=== PATIENT | male | born 1955 | race Caucasian/White ===

== ENCOUNTER 2018-08-03 11:06 | Emergency (ER) | payer BC, SELFPAY ==
[2018-08-03 11:12] VITALS: BP 133/88; PULSE 69; RESP 16; TEMP 37; O2SAT 97
--- NOTE | 2018-08-03 11:18 | ED.GENADUL_ITS ---
Discharge Plan Disposition Patient Disposition: HOME Condition: Good Discharge Details Chief Complaint: Urinary Clinical Impression: Dysuria, Acute urinary retention Primary Care Provider: Crow Dodson ED Provider: Ismael Ibrahim Home Meds and New Rx's Prescriptions: No Action multivitamin [Daily Multi-Vitamin] 1 EACH tablet 1 ea PO DAILY RF: 0 psyllium husk [Metamucil] 0.52 GM capsule 0.52 gm PO DAILY RF: 0 glucosam-chond dj-glojqt-jy ac 1 EACH capsule 1 ea PO DAILY RF: 0 codeine-guaifenesin 120 ML liquid 10 ml PO Q4H PRNQty: 120 RF: 1 fluticasone 16 GM spray,suspension 2 spry NS DAILY Qty: 1 RF: 3 doxazosin 2 MG tablet 2 mg PO DAILY Qty: 90 RF: 4 tadalafil [Cialis] 5 MG tablet 5 mg PO DAILY Qty: 30 RF: 12 hydrocodone-acetaminophen 1 EACH tablet 1 tab-cap PO Q4H PRN 5 Days Qty: 30 RF: 0 aspirin 81 MG tablet,chewable 81 mg PO DAILY RF: 0 Rosuvastatin Calcium 5 MG tablet 5 mg PO HS RF: 0 Discharge Instructions Instructions: Urinary Retention in Men (ED), Gonzalez Catheter Placement and Care (ED), Dysuria (ED) Referrals: [facility] Emergency Dept. [Outside] - Return if symptoms worsen Discharge Data Discharge Date/Time-TO BE ENTERED AT DEPARTURE: 08/03/18 13:59 Medical Decision Making Nurse scanned over 1L in the bladder. Gonzalez catheter placed by nurse and she reported catheter went in with ease and no obstruction. Urine is clear and light yellow. Abdomin without distention and patient much less anxious. We discussed removing versus leaving in until further instruction from urology. Dr. Reynoso is close friend and agreed to flush if needed until he is able to be seen by urology. He was advised to call urology tomorrow for further instruction. UA was clear of infection. This reported to patient. Return to ED if any other complications with catheter. He is agreeable with plan. HPI General Date/Time Provider Initiated Documentation: 08/03/18 11:16 . Limitations to Documentation: no limitations . Information obtained by: patient . History of Present Illness 62 year old M presents to the emergency department with the chief complaint of dysuria, HPI Narrative: 62 y/o male here with c/o dysuria for 24 hours. History of enlarged prostate followed by Dr. Strickland. He is quite anxious and has taken Citalopram. He c/o distended abdomen, pain, and inability to void or complete his void for 24 hours. Denies any fever, chills, or N/V/D. He tells me he is moving his bowels per usual. He has never had to have a catheter placed and this causes angst. Related Data Home Medications Medication Instructions Recorded Confirmed glucosam-chond me-jloivs-li ac 1 ea PO DAILY 06/27/17 multivitamin [Multi-Vitamin Daily] 1 ea PO DAILY 06/27/17 08/03/18 psyllium husk [Metamucil] 0.52 gm PO DAILY 06/27/17 08/03/18 codeine-guaifenesin 10 ml PO Q4H PRN #120 ml 10/19/17 08/03/18 fluticasone 2 spry NS DAILY #1 spray 10/19/17 08/03/18 doxazosin 2 mg PO DAILY #90 tab-cap 11/14/17 08/03/18 tadalafil [Cialis] 5 mg PO DAILY #30 tab-cap 11/14/17 08/03/18 hydrocodone-acetaminophen 1 tab-cap PO Q4H PRN 5 Days #30 12/02/17 08/03/18 tab-cap Rosuvastatin Calcium 5 mg PO HS 02/17/18 08/03/18 aspirin 81 mg PO DAILY tab-cap 02/17/18 08/03/18 Previous Rx's Medication Instructions Recorded fluticasone 2 spry NS DAILY #1 spray 10/19/17 doxazosin 2 mg PO DAILY #90 tab-cap 11/14/17 tadalafil [Cialis] 5 mg PO DAILY #30 tab-cap 11/14/17 Allergies Allergy/AdvReac Type Severity Reaction Status Date / Time atorvastatin AdvReac Intermediate sexual Unverified 08/03/18 11:27 dysfunction lovastatin AdvReac Intermediate sexual Unverified 08/03/18 11:27 dysfunction omeprazole AdvReac Diarrhea Unverified 08/03/18 11:27 Review of Systems Cardiovascular Reports system reviewed and no additional complaints, except as docu Respiratory Reports system reviewed and no additional complaints, except as docu Gastrointestinal Reports abdominal pain, Denies change in bowel habits, Denies diarrhea, Denies nausea and Denies vomiting Comments: distention Genitourinary Reports difficulty urinating, Reports dysuria and Reports urinary hesitancy Musculoskeletal Denies back pain Psychiatric Reports anxiety Hematologic/Lymphatic Reports system reviewed and no additional complaints, except as docu PFSH Family History Father No problems noted. Mother Essential hypertension Heart disease Hyperlipidemia Brother Diabetes Essential hypertension Heart disease Asthma Social History Smoking/Tobacco Use Status: Never Surgical History egd/colo (08/25/16) Exam Const General: cooperative, healthy appearing, no acute distress and anxious HENMT Head: atraumatic Ears: hearing grossly normal bilaterally and external ears normal General nose exam: external nose normal Eyes General: appearance normal, both eyes and all related structures Neck Neck: full ROM and no lymphadenopathy Chest Chest: normal inspection of the chest Resp Effort & Inspection: normal respiratory effort Auscultation: clear to auscultation bilaterally Cardio Rate: regular rate Rhythm: regular rhythm GI Inspection: distended Palpation: soft Auscultation: normal bowel sounds General: bladder abnormal distended Distended: Yes Up to where: midway to bladder and No CVA tenderness Male General Exam: Yes normal external exam Penis: normal penis Meatus: meatus normal Testes: normal Back/Spine/Pelvis Back: no CVA tenderness Skin General skin exam: no rashes or lesions noted Neuro General: alert, awake, oriented x3 and gait normal Extrem General: normal to inspection, full ROM and normal capillary refill Psych Appearance: grossly normal Speech and Movement: speech and movement normal
[2018-08-03] MEDS: Lidocaine 2% Jelly 11 ML SYR (11:25)
[2018-08-03 11:37] LABS: Bilirubin Negative (Negative); Blood Moderate (Negative); Clarity Clear; Glucose Negative (Negative); Ketones Trace mg/dL (Negative); Leukocyte Esterase Negative (Negative); Nitrite Negative (Negative); Specific Gravity 1.015 (1.005-1.025); Urobilinogen 0.2 EU/dL (Up TO 0.2); pH 5.5 (5-8)
[2018-08-03 11:50] LABS: Bacteria Rare HPF (Negative); C & S Indicated? No; Casts Negative LPF (Negative); Crystals Negative HPF (Negative); Epithelial Cells Negative HPF (Negative); Mucus Negative (Negative); WBC 0-2 HPF (0-5)
[2018-08-03 13:00] VITALS: BP 138/72; PULSE 66; RESP 16; TEMP 37; O2SAT 97
== END 2018-08-03 13:59 | disposition home or self-care (01) ==
PROVIDERS: Emergency Provider Nurse Practitioner Family; PCP Family Medicine
DX: N40.1 Benign prostatic hyperplasia with lower urinary tract symptoms (principal); R33.8 Other retention of urine; R30.0 Dysuria
CPT/HCPCS: 51702; 99283; 81003; 81015

== ENCOUNTER 2018-08-05 04:14 | Emergency (ER) | payer BC, SELFPAY ==
[2018-08-05 04:18] VITALS: BP 138/96; PULSE 68; RESP 16; TEMP 36.8; O2SAT 98
--- NOTE | 2018-08-05 04:45 | W.ED.GENAD ---
Discharge Plan Disposition Patient Disposition: HOME Condition: Good Discharge Details Chief Complaint: Urinary Clinical Impression: Acute urinary retention, BPH (benign prostatic hyperplasia) Primary Care Provider: Crow Dodson ED Provider: Fritz Hamm [place] Meds and New Rx's Prescriptions: Continue tamsulosin 0.4 mg capsule 0.4 mg PO DAILY PRN (Reason: urinary retention) Qty: 10 RF: 0 lorazepam 0.5 mg tablet 0.5 mg PO TID PRN (Reason: anxiety) Qty: 10 RF: 0 multivitamin [Daily Multi-Vitamin] 1 EACH tablet 1 ea PO DAILY RF: 0 psyllium husk [Metamucil] 0.52 GM capsule 0.52 gm PO DAILY RF: 0 glucosam-chond qb-fbjdke-az ac 1 EACH capsule 1 ea PO DAILY RF: 0 codeine-guaifenesin 120 ML liquid 10 ml PO Q4H PRNQty: 120 RF: 1 fluticasone 16 GM spray,suspension 2 spry NS DAILY Qty: 1 RF: 3 doxazosin 2 MG tablet 2 mg PO DAILY Qty: 90 RF: 4 tadalafil [Cialis] 5 MG tablet 5 mg PO DAILY Qty: 30 RF: 12 hydrocodone-acetaminophen 1 EACH tablet 1 tab-cap PO Q4H PRN 5 Days Qty: 30 RF: 0 aspirin 81 MG tablet,chewable 81 mg PO DAILY RF: 0 Rosuvastatin Calcium 5 MG tablet 5 mg PO HS RF: 0 Discharge Instructions Instructions: Urinary Retention in Men (ED), Gonzalez Catheter Placement and Care (ED) Additional Instructions: Call Dr. Strickland on Tuesday for follow-up. Continue medications as before. Return to ED for fever, abdominal pain, other concerns. Referrals: Kentrell Strickland MD [ [facility] STAFF PHYSICIAN] - Medical Decision Making Patient with continued urinary retention after having Gonzalez discontinued. He is already on medication for BPH. He has a relationship with Dr. Strickland. Will replace Gonzalez and leave in for the weekend. Follow-up with Dr. Strickland next week. Return to ED for fever, abdominal pain, other concerns. HPI General Mode of arrival: ambulatory. Date/Time Provider Initiated Documentation: 08/05/18 04:34. Limitations to Documentation: no limitations. Information obtained by: patient. HPI Narrative: Patient presents with inability to urinate. Patient was here just a few days ago and had a Gonzalez placed after presenting with similar problem. He had his PCP pull it at noon yesterday. He has been unable to urinate since then other than a slight trickle. He is extremely uncomfortable and presents to have the Gonzalez replaced. He is on medications for BPH. He denies fever or flank pain. Related Data Home Medications Medication Instructions Recorded Confirmed glucosam-chond rs-ozkzal-jq ac 1 ea PO DAILY 06/27/17 08/05/18 multivitamin [Daily Multi-Vitamin] 1 ea PO DAILY 06/27/17 08/05/18 psyllium husk [Metamucil] 0.52 gm PO DAILY 06/27/17 08/05/18 codeine-guaifenesin 10 ml PO Q4H PRN #120 ml 10/19/17 08/05/18 fluticasone 2 spry NS DAILY #1 spray 10/19/17 08/05/18 doxazosin 2 mg PO DAILY #90 tab-cap 11/14/17 08/05/18 tadalafil [Cialis] 5 mg PO DAILY #30 tab-cap 11/14/17 08/05/18 hydrocodone-acetaminophen 1 tab-cap PO Q4H PRN 5 Days #30 12/02/17 08/05/18 tab-cap Rosuvastatin Calcium 5 mg PO HS 02/17/18 08/04/18 aspirin 81 mg PO DAILY tab-cap 02/17/18 08/05/18 lorazepam 0.5 mg tablet 0.5 mg PO TID PRN #10 tab 08/04/18 08/05/18 tamsulosin 0.4 mg capsule 0.4 mg PO DAILY PRN #10 cap 08/04/18 08/04/18 Previous Rx's Medication Instructions Recorded fluticasone 2 spry NS DAILY #1 spray 10/19/17 doxazosin 2 mg PO DAILY #90 tab-cap 11/14/17 tadalafil [Cialis] 5 mg PO DAILY #30 tab-cap 11/14/17 lorazepam 0.5 mg tablet 0.5 mg PO TID PRN #10 tab 08/04/18 tamsulosin 0.4 mg capsule 0.4 mg PO DAILY PRN #10 cap 08/04/18 Allergies Allergy/AdvReac Type Severity Reaction Status Date / Time atorvastatin AdvReac Intermediate sexual Unverified 08/05/18 04:24 dysfunction lovastatin AdvReac Intermediate sexual Unverified 08/05/18 04:24 dysfunction omeprazole AdvReac Diarrhea Unverified 08/05/18 04:24 General Stated Complaint: Urinary CHAITANYA: 4 Review of Systems Constitutional Denies chills and Denies fever(s) Gastrointestinal Reports abdominal pain, Denies nausea and Denies vomiting Genitourinary Denies hematuria, Reports difficulty urinating and Denies flank pain Musculoskeletal Denies back pain PFSH Family History Father No problems noted. 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 Smoking/Tobacco Use Status: Never alcohol intake: current alcohol intake frequency: 0-2 drinks per day Alcohol type: wine and hard liquor working smoke detector in home: Yes fire extinguisher in home: Yes carbon monox detector in home: Yes Surgical History egd/colo (08/25/16) Exam Const General: cooperative, comfortable and no acute distress Orientation: alert and oriented x3 HENMT Head: normocephalic and atraumatic Neck Neck: normal visual inspection, trachea midline and supple GI Inspection: normal to inspection and non-distended Palpation: soft, not firm and nontender Neuro General: alert, oriented x3, gait normal, no focal motor deficits and CN's II-XI intact bilaterally Cognition: normal cognition Speech: speech normal Course Vital Signs Temperature 98.2 F 08/05/18 04:18 Pulse 68 08/05/18 04:18 Respiratory Rate 16 08/05/18 04:18 Blood Pressure 138/96 H 08/05/18 04:18 Pulse Oximetry 98 08/05/18 04:18 Temperature 98.2 F 08/05/18 04:18 Temperature Source Temporal Artery Scan 11/24/18 04:18 Pulse 68 08/05/18 04:18 Respiratory Rate 16 08/05/18 04:18 Respiratory Effort Non-Labored 08/05/18 04:23 Blood Pressure 138/96 H 08/05/18 04:18 Blood Pressure Position Sitting 08/05/18 04:18 Pulse Oximetry 98 08/05/18 04:18 Oxygen Delivery Method Room Air 08/05/18 04:18 Oxygen Flow Rate 0 08/05/18 04:18 Pain Level 6 08/05/18 04:23
--- NOTE | 2018-08-05 04:54 | ED.GENADUL_ITS ---
Discharge Plan Disposition Patient Disposition: HOME Condition: Good Discharge Details Chief Complaint: Urinary Clinical Impression: Acute urinary retention, BPH (benign prostatic hyperplasia) Primary Care Provider: Crow Dodson ED Provider: Fritz Hamm [place] Meds and New Rx's Prescriptions: Continue tamsulosin 0.4 mg capsule 0.4 mg PO DAILY PRN (Reason: urinary retention) Qty: 10 RF: 0 lorazepam 0.5 mg tablet 0.5 mg PO TID PRN (Reason: anxiety) Qty: 10 RF: 0 multivitamin [Daily Multi-Vitamin] 1 EACH tablet 1 ea PO DAILY RF: 0 psyllium husk [Metamucil] 0.52 GM capsule 0.52 gm PO DAILY RF: 0 glucosam-chond qo-vmfrin-zq ac 1 EACH capsule 1 ea PO DAILY RF: 0 codeine-guaifenesin 120 ML liquid 10 ml PO Q4H PRNQty: 120 RF: 1 fluticasone 16 GM spray,suspension 2 spry NS DAILY Qty: 1 RF: 3 doxazosin 2 MG tablet 2 mg PO DAILY Qty: 90 RF: 4 tadalafil [Cialis] 5 MG tablet 5 mg PO DAILY Qty: 30 RF: 12 hydrocodone-acetaminophen 1 EACH tablet 1 tab-cap PO Q4H PRN 5 Days Qty: 30 RF: 0 aspirin 81 MG tablet,chewable 81 mg PO DAILY RF: 0 Rosuvastatin Calcium 5 MG tablet 5 mg PO HS RF: 0 Discharge Instructions Instructions: Urinary Retention in Men (ED), Gonzalez Catheter Placement and Care (ED) Additional Instructions: Call Dr. Strickland on Tuesday for follow-up. Continue medications as before. Return to ED for fever, abdominal pain, other concerns. Referrals: Kentrell Strickland MD [ [facility] STAFF PHYSICIAN] - Medical Decision Making Patient with continued urinary retention after having Gonzalez discontinued. He is already on medication for BPH. He has a relationship with Dr. Strickland. Will replace Gonzalez and leave in for the weekend. Follow-up with Dr. Strickland next week. Return to ED for fever, abdominal pain, other concerns. HPI General Mode of arrival: ambulatory . Date/Time Provider Initiated Documentation: 08/05/18 04:34 . Limitations to Documentation: no limitations . Information obtained by: patient . HPI Narrative: Patient presents with inability to urinate. Patient was here just a few days ago and had a Gonzalez placed after presenting with similar problem. He had his PCP pull it at noon yesterday. He has been unable to urinate since then other than a slight trickle. He is extremely uncomfortable and presents to have the Gonzalez replaced. He is on medications for BPH. He denies fever or flank pain. Related Data Home Medications Medication Instructions Recorded Confirmed glucosam-chond gr-inadcm-oz ac 1 ea PO DAILY 06/27/17 08/05/18 multivitamin [Daily Multi-Vitamin] 1 ea PO DAILY 06/27/17 08/05/18 psyllium husk [Metamucil] 0.52 gm PO DAILY 06/27/17 08/05/18 codeine-guaifenesin 10 ml PO Q4H PRN #120 ml 10/19/17 08/05/18 fluticasone 2 spry NS DAILY #1 spray 10/19/17 08/05/18 doxazosin 2 mg PO DAILY #90 tab-cap 11/14/17 08/05/18 tadalafil [Cialis] 5 mg PO DAILY #30 tab-cap 11/14/17 08/05/18 hydrocodone-acetaminophen 1 tab-cap PO Q4H PRN 5 Days #30 12/02/17 08/05/18 tab-cap Rosuvastatin Calcium 5 mg PO HS 02/17/18 08/04/18 aspirin 81 mg PO DAILY tab-cap 02/17/18 08/05/18 lorazepam 0.5 mg tablet 0.5 mg PO TID PRN #10 tab 08/04/18 08/05/18 tamsulosin 0.4 mg capsule 0.4 mg PO DAILY PRN #10 cap 08/04/18 08/04/18 Previous Rx's Medication Instructions Recorded fluticasone 2 spry NS DAILY #1 spray 10/19/17 doxazosin 2 mg PO DAILY #90 tab-cap 11/14/17 tadalafil [Cialis] 5 mg PO DAILY #30 tab-cap 11/14/17 lorazepam 0.5 mg tablet 0.5 mg PO TID PRN #10 tab 08/04/18 tamsulosin 0.4 mg capsule 0.4 mg PO DAILY PRN #10 cap 08/04/18 Allergies Allergy/AdvReac Type Severity Reaction Status Date / Time atorvastatin AdvReac Intermediate sexual Unverified 08/05/18 04:24 dysfunction lovastatin AdvReac Intermediate sexual Unverified 08/05/18 04:24 dysfunction omeprazole AdvReac Diarrhea Unverified 08/05/18 04:24 General Stated Complaint: Urinary CHAITANYA: 4 Review of Systems Constitutional Denies chills and Denies fever(s) Gastrointestinal Reports abdominal pain, Denies nausea and Denies vomiting Genitourinary Denies hematuria, Reports difficulty urinating and Denies flank pain Musculoskeletal Denies back pain PFSH Family History Father No problems noted. 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 Smoking/Tobacco Use Status: Never alcohol intake: current alcohol intake frequency: 0-2 drinks per day Alcohol type: wine and hard liquor working smoke detector in home: Yes fire extinguisher in home: Yes carbon monox detector in home: Yes Surgical History egd/colo (08/25/16) Exam Const General: cooperative, comfortable and no acute distress Orientation: alert and oriented x3 HENMT Head: normocephalic and atraumatic Neck Neck: normal visual inspection, trachea midline and supple GI Inspection: normal to inspection and non-distended Palpation: soft, not firm and nontender Neuro General: alert, oriented x3, gait normal, no focal motor deficits and CN's II- XI intact bilaterally Cognition: normal cognition Speech: speech normal Course Vital Signs Temperature 98.2 F 08/05/18 04:18 Pulse 68 08/05/18 04:18 Respiratory Rate 16 08/05/18 04:18 Blood Pressure 138/96 H 08/05/18 04:18 Pulse Oximetry 98 08/05/18 04:18 Temperature 98.2 F 08/05/18 04:18 Temperature Source Temporal Artery Scan 11/24/18 04:18 Pulse 68 08/05/18 04:18 Respiratory Rate 16 08/05/18 04:18 Respiratory Effort Non-Labored 08/05/18 04:23 Blood Pressure 138/96 H 08/05/18 04:18 Blood Pressure Position Sitting 08/05/18 04:18 Pulse Oximetry 98 08/05/18 04:18 Oxygen Delivery Method Room Air 08/05/18 04:18 Oxygen Flow Rate 0 08/05/18 04:18 Pain Level 6 08/05/18 04:23
[2018-08-05] MEDS: Lidocaine 2% Jelly 11 ML SYR (04:56)
[2018-08-05 06:12] VITALS: BP 131/80; PULSE 64; RESP 17; TEMP 36.8; O2SAT 98
== END 2018-08-05 06:14 | disposition home or self-care (01) ==
LOC: ER 06:06
PROVIDERS: Emergency Provider Emergency Medicine; PCP Family Medicine
DX: R33.9 Retention of urine, unspecified (principal); N40.0 Benign prostatic hyperplasia without lower urinary tract symptoms
CPT/HCPCS: 51702; 99283; 99282

== ENCOUNTER 2019-04-30 11:52 | Emergency (ER) | payer BC, SELFPAY ==
[2019-04-30 11:58] VITALS: BP 151/99; PULSE 53; RESP 16; TEMP 36.6; O2SAT 98
--- NOTE | 2019-04-30 12:06 | DI.RAD_ITS ---
SYMPTOM/DIAGNOSIS: DEFORMITY TO LT FOOT LEFT FOOT: Three views were obtained. 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 There are questionable deformities of the bases of the first and second metatarsals and of the first and second cuneiform bones raising the possibility of acute fracture. Additional evaluation with CT requested to evaluate possible fracture in the [place] region.
--- NOTE | 2019-04-30 12:33 | W.ED.GENAD ---
Discharge Plan Disposition Patient Disposition: HOME Condition: Stable Discharge Details Chief Complaint: Orthopedic Clinical Impression: Foot fracture, left Primary Care Provider: Addie Henriquez ED Provider: Anamaria Dai Home Meds and New Rx's Prescriptions: New oxycodone-acetaminophen [Percocet] 5-325 mg tablet 1 tab PO Q8H PRN (Reason: pain) Qty: 9 RF: 0 Discharge Instructions Instructions: Oxycodone/Acetaminophen (By mouth), Crutch Instructions (ED), Foot Fracture in Adults (ED), Splint Care (ED) Additional Instructions: Please return immediately to the emergency department if you develop any new or worsening symptoms or if you become otherwise concerned. It is extremely important that you call because it is possible to make an appointment to be seen in follow-up for this visit by your primary care doctor and also with Dr. Segundo this as scheduled. Please do not take Tylenol, alcohol, or any other sedating medications while you are taking Percocet. Referrals: Aron Segundo MD [[facility] STAFF PHYSICIAN] - Addie Henriquez NP [Primary Care Provider] - Discharge Data Discharge Date/Time-TO BE ENTERED AT DEPARTURE: 04/30/19 14:45 Medical Decision Making Charly Porras is a 63-year-old man who presents the emergency department with foot pain after stepping over a trench and feeling his foot jackknife. On exam patient is very well and nontoxic appearing. There is edema and tenderness over the medial aspect of the dorsal midfoot. Foot is neurovascularly intact. No skin wound. Concern for fracture. Plan for x-rays, p.o. oxycodone for pain. Radiology reports complicated fracture pattern of the midfoot on x-ray, request CT for further evaluation. Plan for CT. Patient is amenable. I discussed patient presentation/results with Dr. Segundo orthopedic surgery. Dr. Segundo has reviewed CT, requests 3D recons, is with patient at bedside placing splint. Plan for crutches, patient to be nonweightbearing, p.o. pain medication. I had a lengthy discussion with the patient regarding return to emergency department precautions, home care, safe opiate use, importance of outpatient follow-up. Patient verbalized understanding the plan is amenable. All questions were answered. Medical Records Medical records reviewed: Yes I reviewed the patient's medical records. Imaging Data Radiologic Study: Attestation: I personally reviewed and interpreted this imaging study as follows: Imaging: X-Ray Radiologist's impression: LEFT FOOT: Three views were obtained. 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 There are questionable deformities of the bases of the first and second metatarsals and of the first and second cuneiform bones raising the possibility of acute fracture. Additional evaluation with CT requested to evaluate possible fracture in the Lisfranc region. LEFT FOOT CT: CT examination of the foot was performed utilizing multi slice acquisition and multi planar reconstruction. A Lisfranc region injury was suspected on plain films. CT confirms lateral displacement of the base of the second metatarsal relative to the middle cuneiform consistent with disruption of the Lisfranc ligament. There are fractures of the base of the first metatarsal, the distal aspect of the medial cuneiform, distal aspect of the middle cuneiform, the base of the second metatarsal laterally, lateral distal aspect of the lateral cuneiform, and the base of the fourth metatarsal. Comminution of the fractures of the base of the fourth metatarsal and first metatarsal as well as the medial cuneiform is noted. CONCLUSION: Lisfranc injury as described above. Multiple fractures noted and there is evidence of disruption of the Lisfranc ligament integrity. HPI General Date/Time Provider Initiated Documentation: 04/30/19 12:33. Limitations to Documentation: no limitations. Information obtained by: patient, RN notes reviewed and old records reviewed. HPI Narrative: Charly Porras is a 63 y/o man with history of GERD, coronary artery disease, hyperlipidemia presenting to the emergency department with foot injury. Patient reports that just prior to arrival patient stepped into a trench, feeling that the ball of his foot and the heel of his foot were stretched across the trench. He states that the middle of his foot seemed to sink and his foot jackknifed. He also heard a pop at this time. Patient denies any other injury. Complaining of pain in his midfoot. He denies pain in his distal foot or pain at the ankle. Was previously in his usual state of health. No recent illness. Related Data Home Medications Medication Instructions Recorded Confirmed oxycodone-acetaminophen [Percocet] 1 tab PO Q8H PRN #9 tab 04/30/19 Previous Rx's Medication Instructions Recorded oxycodone-acetaminophen [Percocet] 1 tab PO Q8H PRN #9 tab 04/30/19 Allergies Allergy/AdvReac Type Severity Reaction Status Date / Time atorvastatin AdvReac Intermediate sexual Verified 05/01/19 10:27 dysfunction lovastatin AdvReac Intermediate sexual Verified 05/01/19 10:27 dysfunction omeprazole AdvReac Diarrhea Verified 05/01/19 10:27 General Stated Complaint: Orthopedic CHAITANYA: 4 Review of Systems Review of Systems Constitutional: denies fevers Eyes: denies eye pain ENT: denies facial pain, dental pain, sore throat Cardiovascular: denies chest pain Respiratory: denies SOB, cough GI: denies abdominal pain, vomiting, diarrhea : denies flank pain MSK: denies back pain, neck pain, reports left foot pain Skin: denies rash Neuro: denies headaches, numbness, weakness PFSH Medical History Anxiety state (Chronic 01/11/12) Anderson's esophagus determined by endoscopy (Chronic 08/25/16) BPH (benign prostatic hyperplasia) (Resolved) Coronary artery disease involving shinnecock coronary artery of shinnecock heart without angina pectoris (Chronic 02/13/18) Elevated prostate specific antigen (PSA) (Chronic 01/11/12) GERD (gastroesophageal reflux disease) (Resolved) Hematemesis (Acute) Hemorrhoids (Resolved 05/22/13) Hyperlipidemia (Chronic 01/11/12) Male erectile disorder (Resolved 05/22/13) Tubular adenoma of colon (Chronic 08/25/16) Surgical History egd/colo (08/25/16) S/P transurethral resection of prostate (Chronic 09/07/18) Family History Father No problems noted. 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 What type of physical activity do you participate in: regular exercise Duration: 15-30 minutes/day Frequency: 5-6 times per week Working smoke detector in home: Yes Fire extinguisher in home: Yes Carbon monox detector in home: Yes Do you feel safe in your relationship?: Yes Exam Narrative Exam Narrative: Constitutional: well and [id number], pleasant, conversing normally but appears uncomfortable HENT: head atraumatic/normocephalic/normal inspection, mucous membranes moist Eyes: conjunctiva normal, sclera normal, pupils 3mm b/l Neck: no stridor, normal ROM, trachea midline Resp: normal work of breathing, LCTAB Cardio: normal rate, normal rhythm, no murmur appreciated Skin: warm, dry, normal color, no rash Neuro: alert, not altered, grossly non-focal, normal tone Ext: Edema and tenderness over the left medial foot, no tenderness of the proximal tibia/fibula, cannot range left ankle secondary to pain, normal range of motion of the toes, brisk cap refill of the toes, DP pulse intact, normal sensation of the foot Psych: normal mood, normal affect, normal behavior Course Vital Signs Temperature 36.6 C 04/30/19 11:58 Pulse 53 L 04/30/19 11:58 Respiratory Rate 16 04/30/19 11:58 Blood Pressure 151/99 H 04/30/19 11:58 Pulse Oximetry 98 04/30/19 11:58 Temperature 36.6 C 04/30/19 11:58 Temperature Source Temporal Artery Scan 04/30/19 11:58 Pulse 53 L 04/30/19 11:58 Respiratory Rate 16 04/30/19 11:58 Blood Pressure 151/99 H 04/30/19 11:58 Pulse Oximetry 98 04/30/19 11:58 Oxygen Delivery Method Room Air 04/30/19 11:58 Oxygen Flow Rate 0 04/30/19 11:58 Pain Level 9 04/30/19 11:58
--- NOTE | 2019-04-30 12:44 | DI.CT_ITS ---
SYMPTOM/DIAGNOSIS: TRAUMA., ABNL FOOT XR LEFT FOOT CT: CT examination of the foot was performed utilizing multi slice acquisition and multi planar reconstruction. A Lisfranc region injury was suspected on plain films. CT confirms lateral displacement of the base of the second metatarsal relative to the middle cuneiform consistent with disruption of the Lisfranc ligament. There are fractures of the base of the first metatarsal, the distal aspect of the medial cuneiform, distal aspect of the middle cuneiform, the base of the second metatarsal laterally, lateral distal aspect of the lateral cuneiform, and the base of the fourth metatarsal. Comminution of the fractures of the base of the fourth metatarsal and first metatarsal as well as the medial cuneiform is noted. CONCLUSION: Lisfranc injury as described above. Multiple fractures noted and there is evidence of disruption of the Lisfranc ligament integrity.
[2019-04-30] MEDS: oxyCODONE 5 MG TAB PO (12:51)
--- NOTE | 2019-04-30 14:02 | DI.CT_ITS ---
SYMPTOM/DIAGNOSIS: LIMITED FOR 3D RECON CT RECONSTRUCTION RIGHT FOOT CT 04/30 CT reconstructions were performed for visualization of Lisfranc injury. 3-D reconstructions show expected deformity associated with the deformities as noted on multiplanar imaging.
--- NOTE | 2019-04-30 14:28 | NUR.NOTE ---
Nursing Note: left foot splinted by Orthopedic physician and informed of follow up care.
[2019-04-30 14:49] VITALS: BP 159/95; PULSE 67; RESP 18; TEMP 36.7; O2SAT 98
== END 2019-04-30 14:45 | disposition home or self-care (01) ==
PROVIDERS: Emergency Provider Student in an Organized Health Care Education/Training Program; PCP Nurse Practitioner Adult Health
DX: S93.325A Dislocation of tarsometatarsal joint of left foot, initial encounter (principal); S92.312A Displaced fracture of first metatarsal bone, left foot, initial encounter for closed fracture; S92.242A Displaced fracture of medial cuneiform of left foot, initial encounter for closed fracture; S92.222A Displaced fracture of lateral cuneiform of left foot, initial encounter for closed fracture; S92.342A Displaced fracture of fourth metatarsal bone, left foot, initial encounter for closed fracture; S92.322A Displaced fracture of second metatarsal bone, left foot, initial encounter for closed fracture; X50.9XXA Other and unspecified overexertion or strenuous movements or postures, initial encounter
CPT/HCPCS: 29515; 76376; 99284; 73630; 73700; 99285; E0114

== ENCOUNTER 2019-06-05 12:47 | Outpatient (CLI) | payer BC, SELFPAY ==
--- NOTE | 2019-06-05 11:44 | DI.RAD_ITS ---
EXAM: XR FOOT LT COMPLETE INDICATION: f/u. COMPARISON: CT LOWER EXTREMITY LT WO from 04/30/2019 TECHNIQUE: 2D digital imaging was performed. FINDINGS: The patient is status post Lisfranc fracture and multiple fractures were all described on a previous CT. Previous plain image examination of the left foot is provided. When compared with the prior CT e xamination, there has been no appreciable interval change in the status of multiple fractures with fi ndings consistent with interruption of the Lisfranc ligament.
== END 2019-06-05 13:07 ==
PROVIDERS: PCP Nurse Practitioner Adult Health; Visit Provider Orthopaedic Surgery
DX: S92.242D Displaced fracture of medial cuneiform of left foot, subsequent encounter for fracture with routine healing (principal); S92.312D Displaced fracture of first metatarsal bone, left foot, subsequent encounter for fracture with routine healing; S92.342D Displaced fracture of fourth metatarsal bone, left foot, subsequent encounter for fracture with routine healing
CPT/HCPCS: 73630

== ENCOUNTER 2019-07-10 11:40 | Outpatient (CLI) | payer BC, SELFPAY ==
--- NOTE | 2019-07-10 11:26 | DI.RAD_ITS ---
EXAM: XR FOOT LT COMPLETE INDICATION: f/u. COMPARISON: CT LOWER EXTREMITY LT WO from 04/30/2019 XR FOOT LT COMPLETE from 06/05/2019 TECHNIQUE: 2D digital imaging was performed. FINDINGS: The fractures of the bases of the 1st and 2nd metatarsals appears stable. There is a stable osseous fragment seen on the plantar surface of the foot at the level of the tarsometatarsal joints. No new fractures or dislocations are appreciated. There is mild soft tissue swelling of the midfoot. A pre vious partial amputation of the distal phalanx of the great toe is again noted. IMPRESSION: Stable appearance of the left foot.
== END 2019-07-10 12:00 ==
PROVIDERS: PCP Nurse Practitioner Adult Health; Visit Provider Orthopaedic Surgery
DX: S92.222D Displaced fracture of lateral cuneiform of left foot, subsequent encounter for fracture with routine healing (principal); S92.312D Displaced fracture of first metatarsal bone, left foot, subsequent encounter for fracture with routine healing; S98.122D Partial traumatic amputation of left great toe, subsequent encounter; M79.89 Other specified soft tissue disorders
CPT/HCPCS: 73630

== ENCOUNTER 2019-11-06 10:57 | Emergency (ER) | payer MEDICARE, BC, SELFPAY ==
[2019-11-06] VITALS (39 sets, daily range): BP systolic 132–162; BP diastolic 91–105; PULSE 59–76; RESP 9–21; TEMP 36.4–37; O2SAT 94–100
[2019-11-06] MEDS: Meclizine 25 MG TAB PO (11:15)
[2019-11-06] MEDS: Normal Saline 1,000 ML 1000 ML IV (11:19)
[2019-11-06 11:25] LABS: Abs Immature Grans 0.02 k/cumm (0.0-0.09); Absolute Basophil Count 0.01 k/cumm (0.0-0.2); Absolute Eosinophil Count 0.01 k/cumm (0.0-0.7); Absolute Lymphocyte Count 1.59 k/cumm (1.2-3.4); Absolute Monocyte Count 0.51 k/cumm (0.11-0.7); Absolute Neutrophil Count 7.18 k/cumm (1.2-6.7); Basophils % 0.1; Eosinophils % 0.1; HCT 52.4 % (40.0-50.0); Immature Grans % 0.2 %; Lymphocytes % 17.1; Mean Corp. HGB Concentration 34.4 g/dL (32.0-36.0); Mean Corpuscular Hemoglobin 31.3 pg (27.0-33.0); Mean Platelet Volume 11.6 fL (8.0-11.0); Monocytes % 5.5; Platelet Count 179 x1000/uL (130-400); RBC 5.76 m/cumm (4.50-6.00); RBC Distribution Width 14.2 % (11.8-14.1); White Blood Cell Count 9.32 k/cumm (4.4-10.8)
--- NOTE | 2019-11-06 11:36 | W.ED.GENAD ---
Discharge Plan Disposition Patient Disposition: HOME Condition: Good Discharge Details Chief Complaint: Dizzy/Sync Clinical Impression: Peripheral vertigo, Acute dehydration Primary Care Provider: Addie Henriquez ED Provider: Joselito Jerome Home Meds and New Rx's Prescriptions: New ondansetron HCl [Zofran] 4 mg tablet 4 mg PO Q8H Qty: 12 RF: 0 meclizine 25 mg tablet 25 mg PO TID PRN (Reason: motion sickness) Qty: 14 RF: 0 No Action No Known Home Meds RF: 0 Discharge Instructions Instructions: Benign Paroxysmal Positional Vertigo (ED) Additional Instructions: At this time your symptoms are consistent with peripheral vertigo. Please take the meclizine as directed for dizziness, take the Zofran as needed for the nausea. Please drink plenty of fluids. If you notice any worsening of your symptoms, or any new symptoms such as vomiting, diarrhea, fever, chills, shortness of breath, chest pain, numbness, weakness, or fainting , please return immediately to the emergency department for reevaluation. Please follow up with your primary care provider as soon as possible for reassessment and reevaluation. As always, it was a pleasure participating in your medical care today. Referrals: Addie Henriquez, CUSTOMER QUALITY SPECIALIST [Primary Care Provider] - Medical Decision Making This is a 64-year-old male with a past medical history of benign prostatic hyperplasia, reflux, high cholesterol, with previous negative stress test, who presents today for evaluation of dizziness. Patient states that he had a sudden onset of dizziness that occurred suddenly 2-1/2 days ago which he describes as room spinning sensation with mild associated double vision only when looking at a TV. He has had occasional vomiting because of this as well. He has not had any improvement of his symptoms since then. He went to see his PCP earlier today who then referred him to the ER for further evaluation and IV fluids. Currently the patient denies any double vision, headache, numbness tingling or weakness. He does have a strong family history of M?ni?re's disease but denies any tinnitus. He denies any abdominal pain, chest pain, chest tightness, burning sensation in his chest, shortness of breath or chest pressure. He denies history of TN. He has no other complaints at this time. Symptoms are made worse with movement of his head. Improved by nothing. Physical exam demonstrates unidirectional left-sided horizontal nystagmus, fatigable, with no vertical or rotatory nystagmus, negative test of skew. The remainder of his neurologic exam is unremarkable. Signs and symptoms at this time appear clinically consistent with peripheral vertigo. He has no history of stroke for himself. We will trial meclizine and fluids. We discussed risk and benefits of CT imaging of the head, and at this time through shared decision making process family would like to hold off on any additional imaging. Of note even though the patient has no chest symptoms whatsoever, screening EKG does show slightly atypical inverted T waves for V5 and V6 with minimal less than 1 mm depression in V5 and V6 as well. No evidence of STEMI. Slight 1 mm elevation in aVR. We will get a troponin continue to monitor. 12:47 PM We were able to procure the EKG from [facility] 1 year ago and it actually shows identical findings what is found today. His EKG is unchanged with no signs of STEMI. I do not feel that this is the cause of his symptoms and his signs and symptoms are clinically inconsistent with ACS. Patient is feeling better after meclizine, but still feels little dizzy. He feels much more relaxed at this time, laboratory work-up is returned, no significant abnormalities, no white count bandemia or significant electrolyte abnormality. He does have mild gap, I feel this is likely secondary to dehydration. Troponin normal. We will continue to gently rehydrate, perform p.o. trial, give a small amount of Valium and reassess. At this time the patient still has no neurologic deficits on exam, and signs and symptoms appearing inconsistent with central etiology. 2 PM On reassessment the patient is feeling much better, he is able to ambulate well without any difficulty whatsoever. He states that he feels completely different than before and would like to go home. We again discussed potential imaging options and through shared decision making process we will hold off at this time. Signs and symptoms appear notably clinically consistent with a peripheral etiology, I suspect mild labyrinthitis, and less likely M?ni?re's. Without improvement of symptoms with rotational movements through Ewing-Hallpike, I do not feel that there is a particular otolith etiology. With his notable improvement I feel he can be safely discharged. Will give meclizine and Zofran for home use as needed. Discussed red flags for which to return. I have extensively reviewed the treatment plan and discharge instructions with the patient and their family. I have addressed all patient concerns at this time. The patient and family was made aware of what symptoms to monitor for that would warrant a return to the emergency department. Discussed the plan with the patient and family, they demonstrate verbal understanding and agreement with our assessment and plan at this time. EKG 11: 18 Rate 58, GA 128, QTc 458, QRS 96, sinus bradycardia, nonspecific less than a millimeter ST depression in V4 V5 and V6 with T wave inversion in V5 and V6, less than 1 mm elevation in aVR, no Q waves, no evidence of STEMI. Review of EKG from 2004 reveals that this is a slight and subtle change, however review of EKG from [facility] in August 2018 1 year ago demonstrates identical findings in V4 V5 and V6 as well as aVR. No evidence of acute change, no evidence of STEMI, no other abnormalities. Inconsistent with STEMI. HPI General Date/Time Provider Initiated Documentation: 11/06/19 11:08. HPI Narrative: This is a 64-year-old male with a past medical history of benign prostatic hyperplasia, reflux, high cholesterol, with previous negative stress test, who presents today for evaluation of dizziness. Patient states that he had a sudden onset of dizziness that occurred suddenly 2-1/2 days ago which he describes as room spinning sensation with mild associated double vision only when looking at a TV. He has had occasional vomiting because of this as well. He has not had any improvement of his symptoms since then. He went to see his PCP earlier today who then referred him to the ER for further evaluation and IV fluids. Currently the patient denies any double vision, headache, numbness tingling or weakness. He does have a strong family history of M?ni?re's disease but denies any tinnitus. He denies any abdominal pain, chest pain, chest tightness, burning sensation in his chest, shortness of breath or chest pressure. He denies history of TN. He has no other complaints at this time. Symptoms are made worse with movement of his head. Improved by nothing. Related Data Home Medications Medication Instructions Recorded Confirmed Unknown [No Known Home Meds] 06/05/19 11/06/19 meclizine 25 mg PO TID PRN #14 tab 11/06/19 ondansetron HCl [Zofran] 4 mg PO Q8H #12 tab 11/06/19 Previous Rx's Medication Instructions Recorded meclizine 25 mg PO TID PRN #14 tab 11/06/19 ondansetron HCl [Zofran] 4 mg PO Q8H #12 tab 11/06/19 Allergies Allergy/AdvReac Type Severity Reaction Status Date / Time atorvastatin AdvReac Intermediate sexual Verified 11/06/19 11:02 dysfunction lovastatin AdvReac Intermediate sexual Verified 11/06/19 11:02 dysfunction omeprazole AdvReac Diarrhea Verified 11/06/19 11:02 General Stated Complaint: Dizzy/Sync CHAITANYA: 3 Review of Systems All systems reviewed & are unremarkable except as noted in HPI and below PFSH Social History Smoking/Tobacco Use Status: Never Alcohol Intake: current Alcohol Intake frequency: 0-2 drinks per day Alcohol type: wine and hard liquor Drug use: Never Substance use type: does not use Household members: spouse Housing: house Number of Children: 2 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 Notable reproducible left-sided horizontal nystagmus with no vertical or rotatory nystagmus. 3.ENT: Atraumatic external nose and ears. Moist MM. Neck: Symmetric, trachea midline, No thyromegaly. 4.CVS: +S1/S2, No murmurs or gallops. Peripheral pulses 2+ and equal in all extremities. Brisk capillary refill in all extremities. 5.RESP: Unlabored respiratory effort. Clear to auscultation bilaterally. No wheezes rales or rhonchi 6.GI: Soft, Nontender/Nondistended, No hepatosplenomegaly. No guarding or rebound. 7.MSK: Normocephalic/Atraumatic, Extremities w/o deformity or ttp No cyanosis or clubbing, Normal movement of all extremities 8.Skin: Warm, Dry. No rashes or lesions. 9.Neuro: licensed architect II-XII grossly intact. Sensation grossly intact, no focal neurologic deficits. All 6 cardinal planes of vision are fully intact. No evidence of rotatory or vertical nystagmus. Notable left-sided horizontal nystagmus. The patient demonstrated a normal dylnmp-lsjo-orjzox, good dexterity. There was no evidence of dysdiadochokinesia. Patient was able to ambulate without difficulty. There was no wide-based gait. Romberg testing was normal. Buei-be-dpgn testing was normal. Sensation was intact bilaterally as well as muscle strength bilaterally for all extremities. Patient was able to verbalize butter cup with no slurring, or miss pronunciation. Cerebellar function testing is normal. The patient demonstrates a normal hints exam with no findings concerning for a central event. No vertical nystagmus. The head impulse test is positive. Normal test of skew. Reproducible fatigable unidirectional left-sided horizontal nystagmus. no suggestion of a central cerebellar event. 10.Psych: (AAO) x3. Appropriate mood and affect Course Vital Signs Vital signs: Vital Signs Temperature 36.4 C 11/06/19 11:01 Pulse 68 11/06/19 11:01 Respiratory Rate 20 11/06/19 11:01 Blood Pressure 162/98 H 11/06/19 11:01 Pulse Oximetry 98 11/06/19 11:01 Temperature 36.4 C 11/06/19 11:01 Temperature Source Temporal Artery Scan 11/06/19 11:01 Pulse 68 11/06/19 11:01 Respiratory Rate 20 11/06/19 11:03 Respiratory Effort Non-Labored 11/06/19 11:03 Respiratory Depth Normal 11/06/19 11:03 Respiratory Pattern Normal 11/06/19 11:03 Blood Pressure 162/98 H 11/06/19 11:01 Blood Pressure Position Sitting 11/06/19 11:01 Pulse Oximetry 98 11/06/19 11:01 Oxygen Delivery Method Room Air 11/06/19 11:01 Oxygen Flow Rate 0 11/06/19 11:01 Pain Level 0 11/06/19 11:01 Lab/Test Results Lab/Test Results: 11/06/19 11:07 Nasopharynx Influenza Types A,B Antigen - Final Laboratory Tests Range/Units 11/06/19 11:10 WBC (4.4-10.8) k/cumm 9.32 RBC (4.50-6.00) m/cumm 5.76 Hgb (13.5-17.5) g/dL 18.0 H Hct (40.0-50.0) % 52.4 H MCV (80-95) fL 91.0 MCH (27.0-33.0) pg 31.3 MCHC (32.0-36.0) g/dL 34.4 RDW (11.8-14.1) % 14.2 H Plt Count (130-400) x1000/uL 179 MPV (8.0-11.0) fL 11.6 H Immature Gran % % 0.2 Neutrophils % 77.0 Lymphocytes % 17.1 Monocytes % 5.5 Eosinophils % 0.1 Basophils % 0.1 Absolute Neutrophils (1.2-6.7) k/cumm 7.18 H Absolute Lymphocytes (1.2-3.4) k/cumm 1.59 Absolute Monocytes (0.11-0.7) k/cumm 0.51 Absolute Eosinophils (0.0-0.7) k/cumm 0.01 Absolute Basophils (0.0-0.2) k/cumm 0.01
[2019-11-06 11:48] LABS: ALT 37 U/L (16-63); AST 24 U/L (15-37); Albumin 4.4 g/dL (3.4-5.0); Alkaline Phosphatase 59 U/L (46-116); Anion Gap 15.9 mmol/L (3-11); BUN 21 mg/dL (7-18); Bilirubin, Total 0.8 mg/dL (0.2-1.0); CO2 23.1 mmol/L (21.0-32.0); Calcium 9.9 mg/dL (8.5-10.1); Chloride 98 mmol/L (98-107); Glucose 127 mg/dL (74-106); Potassium 3.7 mmol/L (3.5-5.1); Sodium 137 mmol/L (136-145); Total Protein 8.5 g/dL (6.4-8.2)
[2019-11-06 12:04] LABS: Lipase 174 U/L (73-393)
[2019-11-06 12:14] LABS: Troponin I < 0.05 ng/Ml (<0.06)
[2019-11-06] MEDS: diazePAM 10 MG/2 ML SYR 5 MG IVP (12:37)
[2019-11-06] MEDS: Normal Saline 500 ML IV (12:53)
== END 2019-11-06 14:27 | disposition home or self-care (01) ==
PROVIDERS: Emergency Provider Student in an Organized Health Care Education/Training Program; PCP Nurse Practitioner Adult Health
DX: H81.10 Benign paroxysmal vertigo, unspecified ear (principal); R11.2 Nausea with vomiting, unspecified; E86.0 Dehydration
CPT/HCPCS: 36415; 80053; 83690; 87449; 93005; 96361; 96374; 99284; 84484; 85025; 93010; J3360

== ENCOUNTER 2020-10-14 03:03 | Outpatient (CLI) | payer MEDICARE, BC, SELFPAY ==
[2020-10-14 09:53] LABS: Calculated LDL 97 mg/dL (<100); Cholesterol 187 mg/dL (<200); HDL Cholesterol 73 mg/dL (40-60); Triglyceride 85 mg/dL (<150)
== END 2020-10-14 03:04 | disposition home or self-care (01) ==
LOC: LBO 03:04
PROVIDERS: PCP Nurse Practitioner Adult Health; Visit Provider Internal Medicine
DX: E78.01 Familial hypercholesterolemia (principal)
CPT/HCPCS: 36415; 80061

== ENCOUNTER 2021-01-05 04:11 | Outpatient (CLI) | payer MEDICARE, BC, SELFPAY ==
[2021-01-05 10:00] LABS: Calculated LDL 38 mg/dL (<100); Cholesterol 127 mg/dL (<200); HDL Cholesterol 74 mg/dL (40-60); Triglyceride 77 mg/dL (<150)
== END 2021-01-05 04:12 | disposition home or self-care (01) ==
LOC: LBO 04:11
PROVIDERS: Urology; PCP Nurse Practitioner Adult Health; Visit Provider Internal Medicine
DX: E78.01 Familial hypercholesterolemia (principal); R97.20 Elevated prostate specific antigen [PSA]
CPT/HCPCS: 36415; 80061; 84153

== ENCOUNTER 2021-01-29 01:33 | Outpatient (CLI) | payer MEDICARE, BC, SELFPAY ==
--- NOTE | 2021-01-29 08:00 | ETT_ITS ---
APPROVED REPORT Exam: Exercise Treadmill Patient Location: Out-Patient Room/Bed: Stress Nurse: Debora Zaragoza RN Ordering Provider:ANMOL HERNANDEZN, Contact Number: [phone] BMI: 28.03 Baseline Rhythm: Sinus Rhythm Comment: Frequent PVCs, flipped T waves leads II, III, AVF, V4, V5, V6 Indications: SOB, substernal chest pain Medical History Medical History: Hyperlipidemia, CAD, gerd Cardiac Medications: Rosuvastatin, evolocumab, ezetimibe Allergies: Atrovastatin, lovastatin, omeprazole Cardiac Risk Factors: Hyperlipidemia, family hx Previous Cardiac Procedures: None Pretest Chest Pain Characteristics: None Exercise History: Physically active Physical Disabilities: None Lung Sounds: Clear to auscultation Heart Sounds: Regular Stress Test Details Test: Exercise stress testing was performed using a Greg protocol. Rest Stress HR Resting HR Supine: 66 bpm Max Heart Rate (APMHR): 154 bpm Resting HR Standin bpm Target HR (85% APMHR): 130 bpm Max HR Achieved: 140 bpm % of APMHR: 90 Recovery HR: 86 bpm HR response to stress: Normal HR response to stress BP Resting BP Supine: 140/98 mmHg Resting BP Standin/100 mmHg Max BP: 172/98 mmHg Recovery BP: 134/88 mmHg BP response to stress: Normal blood pressure response to stress. ECG Resting ECG: Sinus Rhythm Ectopy: Frequent PVCs Comment: Flipped T waves leads II, III, AVF, V4, V5, V6 Stress ECG: Sinus Tachycardia Arrhythmia: Frequent multifocal PVCs, bigeminy. PVCs prominent in beggining of exercise, not prese nt after 5 minutes. Comment: Flipped T waves leads II, III, AVF, V4, V5, V6 Recovery ECG: Sinus Rhythm Recovery ST Change: Horizontal ST depression Lead(s): I, V3 Recovery ST Deviation: 1 mm Recovery Arrhythmia: Frequent multifocal PVCs, bigeminal couplets, bigeminy Comment: Flipped T waves leads II, III, AVF, V4, V5, V6 Clinical Reason for Termination: Fatigue Stress Symptoms: General Fatigue Exercise duration: 10 min01 sec Highest Stage Reached: Stage 4: 4.2 mph at 16% grade. Exercise capacity: 11.84 METs Mullen Treadmill Score: 5 Rate Pressure Product: [id number] Stress ECG Conclusion 1. The patient exercised for 10 minutes (12 METS). Exercise was stopped due to fatigue. 2. Patient's blood pressure and heart rate augmented appropriately with stress. 3. Patient had baseline deep T wave inversions inferiorly and laterally which make the interpretation of the study quite difficult. 4. There is no overt evidence of ischemia but again baseline abnormalities and no imaging limited the ability of this test to diagnose ischemia. Mullen Treadmill Score is 5 which is Low risk. Stress Test Summary STAGE Time (mins) Speed (mph) Grade (%) HR BP SYMPTOMS METS Supine 66 140/98 Standing 64 136/100 1 3 1.7 10 98 138/96 SpO2 97% 4.6 2 6 2.5 12 105 172/98 SpO2 98% 7 3 9 3.4 14 140 10.2 1 min recovery 114 160/94 SpO2 98% 3 min recovery 97 152/90 6 min recovery 86 134/88
== END 2021-01-29 01:53 ==
PROVIDERS: PCP Nurse Practitioner Adult Health; Visit Provider Internal Medicine
DX: R06.02 Shortness of breath (principal); R07.89 Other chest pain; I49.3 Ventricular premature depolarization; R94.31 Abnormal electrocardiogram [ECG] [EKG]; E78.5 Hyperlipidemia, unspecified; Z82.49 Family history of ischemic heart disease and other diseases of the circulatory system; R00.8 Other abnormalities of heart beat
CPT/HCPCS: 93016; 93018; 93306; 93017

== ENCOUNTER 2021-03-10 01:14 | Outpatient (CLI) | payer MEDICARE, BC, SELFPAY ==
--- NOTE | 2021-03-10 08:45 | DI.NM_ITS ---
APPROVED REPORT Exam: Pharmacologic paired w/ low level exercise Patient Location: Out-Patient Room/Bed: Stress Nurse: Cathy Thakkar RN Ordering Provider:ANMOL PEREZ, Contact Number: [phone] BMI: 28.18 Baseline Rhythm: Sinus Bradycardia Indications: ASCVD, OROZCO Medical History Medical History: HLD, CAD, GERD Cardiac Medications: Rosuvastatin, Evolocumab, Ezetimibe, Allergies: Atorvastatin, Lovastatin, Omeprazole Cardiac Risk Factors: FHX of CAD, Hyperlipidemia Previous Cardiac Procedures: None Pretest Chest Pain Characteristics: No chest pain Exercise History: Physically active Physical Disabilities: None. Lung Sounds: Clear to auscultation Heart Sounds: Regular Stress Test Details Test: Pharmacologic stress was paired with low level exercise. Reason for pharmacologic stress test: T wave inverstions. Nuclear Acquisition: Rest Tc-99m/Stress Tc-99m 1 day Rest Isotope: Tc-99m Sestamibi. Dose: 11.2 Date: 03/10/2021 Injection Time: 0900 Stress Isotope: Tc-99m Sestamibi. Dose: 36.6 Date: 03/10/2021 Injection Time: 1030 HR Resting HR Supine: 53 bpm Max Heart Rate (APMHR): 154.955536 bpm Resting HR Standin bpm Target HR (85% APMHR): 130.076642 bpm Max HR Achieved: 97 bpm % of APMHR: 62.99 Recovery HR: 65 bpm BP Resting BP Supine: 140/78 mmHg Resting BP Standin/76 mmHg Max BP: 148/82 mmHg Recovery BP: 138/84 mmHg ECG Resting ECG: Sinus Bradycardia Ectopy: None Comment: Diffuse T wave inversions Stress ECG: Sinus Rhythm ST Change: Unable to determine d/t T wave inversions Arrhythmia: increasing PVC burden following lexiscan injection. Episodes of bigeminy Comment: Diffuse T wave inversions Recovery ECG: Sinus Rhythm Recovery ST Change: U Recovery Arrhythmia: frequent multifocal PVCs, bigeminy, Comment: Diffuse T wave inversions Clinical Stress Symptoms: Dyspnea Rate Pressure Product: [id number] Stress ECG Conclusion 1. There is a pharmacological stress test with baseline T wave abnormalities. 2. There was a significant degree of PVCs. 3. The EKG portion of this exam was nondiagnostic. Stress Test Summary STAGE HR BP Symptoms NOTES Supine 53 140/78 1 min post Lexiscan injection 83 140/80 mild SOB, SpO2 97% 3 min post Lexiscan injection 75 148/82 symptoms resolved. 6 min post Lexiscan injection 65 138/84 Standing 56 144/76 Lexiscan injection paired with low level exercise. Treadmill settings: 1.5 mph, 0% grade. MPI Conclusion The ejection fraction was 41% with stress. There was hypokinesis of the inferior wall. There was a moderately sized mixed perfusion defect of the mid and basal inferior wall with a moderat e degree of ischemia. This represents an abnormal SPECT stress test. There was an incidental mass found on the right kidney likely to be a cyst. Recommend further evalua tion with renal ultrasound. Radiologist Interpretation Radiologist agrees with Underwriting Consultant's Interpretation. Radiologist Interpretation by: Aron Shah MD Interpretation Date/Time: 03/10/2021 13:40:10
[2021-03-10] MEDS: Regadenoson 0.4 MG/5 ML SYR IVP (10:36)
== END 2021-03-10 01:34 ==
PROVIDERS: PCP Nurse Practitioner Adult Health; Visit Provider Internal Medicine
DX: I25.10 Atherosclerotic heart disease of native coronary artery without angina pectoris (principal); Z82.49 Family history of ischemic heart disease and other diseases of the circulatory system; E78.5 Hyperlipidemia, unspecified; I49.3 Ventricular premature depolarization
CPT/HCPCS: 78452; 93016; 93018; 93017; J2785

== ENCOUNTER 2021-03-24 04:04 | Outpatient (CLI) | payer MEDICARE, BC, SELFPAY ==
[2021-03-24 09:17] LABS: Abs Immature Grans 0.02 10^3/uL (0.0-0.06); HCT 47.9 % (40.0-50.0); MCH 31.9 pg (27.0-33.0); MCHC 33.4 % (32.0-36.0); MCV 95.4 fL (80-95); MPV 11.7 fL (8.0-11.0); Nucleated RBC 0 %; RBC 5.02 10^6/uL (4.36-5.78); RDW 13.5 % (11.8-14.1); RDW-SD 47.8 fL; WBC 6.51 10^3/uL (4.4-10.8)
[2021-03-24 09:44] LABS: PTT Activated 23.6 sec (21.0-27.5); Prothrombin Time 10.3 sec (9.3-11.0)
[2021-03-24 09:47] LABS: Absolute Lymphocyte Count 2.15 10^3/uL (1.2-3.4); Absolute Monocyte Count 0.52 10^3/uL (0.1-0.8); Absolute Neutrophil Count 3.65 10^3/uL (1.2-6.7); Atypical Lymphocytes % 9
[2021-03-24 09:48] LABS: Diff Comment Manual Differential; Platelet Count 150 10^3/uL (130-400); RBC Morphology Normal
[2021-03-24 10:30] LABS: Anion Gap 8.7 mmol/L (3-11); BUN 28 mg/dL (7-18); CO2 28.3 mmol/L (21.0-32.0); CREATININE 1.1 mg/dL (0.70-1.30); Calcium 9.5 mg/dL (8.5-10.1); Chloride 105 mmol/L (98-107); Glucose 103 mg/dL (74-106); Potassium 4.3 mmol/L (3.5-5.1); Sodium 142 mmol/L (136-145)
== END 2021-03-24 04:05 | disposition home or self-care (01) ==
LOC: LBO 04:05
PROVIDERS: PCP Nurse Practitioner Adult Health; Visit Provider Internal Medicine
DX: I99.8 Other disorder of circulatory system (principal); Z01.818 Encounter for other preprocedural examination; I25.10 Atherosclerotic heart disease of native coronary artery without angina pectoris; E78.01 Familial hypercholesterolemia; R06.09 Other forms of dyspnea
CPT/HCPCS: 36415; 80048; 85025; 85610; 85730

== ENCOUNTER 2021-04-20 01:47 | Outpatient (CLI) | payer MEDICARE, BC, SELFPAY ==
--- NOTE | 2021-04-20 07:45 | DI.US_ITS ---
Exam(s) US RENAL EXAM: US RENAL CLINICAL HISTORY: F/U incidental finding on nuclear stress--?cyst,RT RENAL MASS,N28.89. TECHNIQUE: Stoddard scale, color and spectral Doppler were used. COMPARISON: CT,NM,TMT NM MPI REST STRESS GRP from 03/10/2021 FINDINGS: Renal size in cm: Right: 10.4 left: 11.6 Echogenicity: Normal Hydronephrosis: No Cyst or mass: Multiple bilateral renal cysts upper mid and lower poles. Largest measures 4.9 cm bilat erally. No suspicious masses. Nephrolithiasis: No Bladder:Normal Prevoid vol:29 Postvoid vol:4 Both ureteral jets were seen. IMPRESSION: Abnormality seen on recent nuclear medicine stress test corresponds to bilateral renal cysts. No susp icious masses. DATA REPOSITORY:
== END 2021-04-20 02:07 ==
PROVIDERS: PCP Nurse Practitioner Adult Health; Visit Provider Nurse Practitioner Adult Health
DX: N28.1 Cyst of kidney, acquired (principal)
CPT/HCPCS: 76770

== ENCOUNTER 2021-05-08 09:00 | Outpatient (RCR) | payer MEDICARE, BC, SELFPAY | END 2021-05-12 23:59 | disposition home or self-care (01) | LOC: CR 09:00 | PROVIDERS: PCP Nurse Practitioner Adult Health; Visit Provider Family Medicine | DX: Z51.89 Encounter for other specified aftercare (principal); Z95.1 Presence of aortocoronary bypass graft | CPT/HCPCS: S9472 ==

== ENCOUNTER 2021-06-10 09:00 | Outpatient (RCR) | payer MEDICARE, BC, SELFPAY | END 2021-06-11 23:59 | disposition home or self-care (01) | LOC: CR 09:00 | PROVIDERS: PCP Nurse Practitioner Adult Health; Visit Provider Family Medicine | DX: Z51.89 Encounter for other specified aftercare (principal); I25.10 Atherosclerotic heart disease of native coronary artery without angina pectoris; Z95.1 Presence of aortocoronary bypass graft | CPT/HCPCS: S9472 ==

== ENCOUNTER 2021-07-08 09:00 | Outpatient (RCR) | payer MEDICARE, BC, SELFPAY | END 2021-07-12 23:59 | disposition home or self-care (01) | LOC: CR 09:00 | PROVIDERS: PCP Nurse Practitioner Adult Health; Visit Provider Family Medicine | DX: Z51.89 Encounter for other specified aftercare (principal); I25.10 Atherosclerotic heart disease of native coronary artery without angina pectoris; Z95.1 Presence of aortocoronary bypass graft | CPT/HCPCS: S9472 ==

== ENCOUNTER 2021-07-20 09:00 | Outpatient (RCR) | payer MEDICARE, BC, SELFPAY | END 2021-08-11 23:59 | disposition home or self-care (01) | LOC: CR 09:00 | PROVIDERS: PCP Nurse Practitioner Adult Health; Visit Provider Family Medicine | DX: Z51.89 Encounter for other specified aftercare (principal); I25.10 Atherosclerotic heart disease of native coronary artery without angina pectoris; Z95.1 Presence of aortocoronary bypass graft | CPT/HCPCS: S9472 ==

== ENCOUNTER 2021-07-21 04:13 | Outpatient (CLI) | payer MEDICARE, BC, SELFPAY ==
[2021-07-21 08:22] LABS: INR 1.1 (0.9-1.1); PTT Activated 24.5 sec (21.0-27.5); Prothrombin Time 10.7 sec (9.3-11.0)
[2021-07-21 08:56] LABS: Abs Immature Grans 0.02 10^3/uL (0.0-0.06); Absolute Basophil Count 0.02 10^3/uL (0.0-0.2); Absolute Eosinophil Count 0.21 10^3/uL (0.0-0.7); Absolute Lymphocyte Count 2.03 10^3/uL (1.2-3.4); Absolute Monocyte Count 0.49 10^3/uL (0.1-0.8); Absolute Neutrophil Count 3.31 10^3/uL (1.2-6.7); Basophils % 0.3; Eosinophils % 3.5; HCT 51.1 % (40.0-50.0); HGB 16.6 g/dL (13.5-17.5); Immature Grans % 0.3; Lymphocytes % 33.4; MCH 30.3 pg (27.0-33.0); MCHC 32.5 % (32.0-36.0); MCV 93.2 fL (80-95); MPV 12.5 fL (8.0-11.0); Monocytes % 8.1; Neutrophils % 54.4; Nucleated RBC 0 %; Platelet Count 175 10^3/uL (130-400); RBC 5.48 10^6/uL (4.36-5.78); RDW 13.5 % (11.8-14.1); RDW-SD 46.8 fL; WBC 6.08 10^3/uL (4.4-10.8)
[2021-07-22 01:40] LABS: BUN 24 mg/dL (7-18); Calcium 9.4 mg/dL (8.5-10.1); Glucose 99 mg/dL (74-106)
[2021-07-22 01:41] LABS: CREATININE 1.1 mg/dL (0.70-1.30); Calculated LDL 40 mg/dL (<100); Chloride 103 mmol/L (98-107); Cholesterol 133 mg/dL (<200); HDL Cholesterol 80 mg/dL (40-60); Potassium 4.3 mmol/L (3.5-5.1); Sodium 142 mmol/L (136-145); Triglyceride 66 mg/dL (<150)
== END 2021-07-21 04:14 | disposition home or self-care (01) ==
LOC: LBO 04:13
PROVIDERS: PCP Nurse Practitioner Adult Health; Visit Provider Internal Medicine
DX: Z01.818 Encounter for other preprocedural examination (principal); I25.10 Atherosclerotic heart disease of native coronary artery without angina pectoris; E78.01 Familial hypercholesterolemia; R06.00 Dyspnea, unspecified
CPT/HCPCS: 36415; 80048; 80061; 85025; 85610; 85730

== ENCOUNTER 2022-05-13 11:46 | Outpatient (CLI) | payer MEDICARE, BC, SELFPAY ==
--- NOTE | 2022-05-13 11:45 | RT.EKG_ITS ---
APPROVED REPORT Exam: Resting ECG Reason for Exam: [place], hx ASCVD, r/o acute Patient Location: O HR:63 bpm ECG Measurements Heart Rate 63 AXIS FL 133 P 26 QRSd 100 QRS -28 QT 460 T 235 QTc 471 Conclusion Sinus rhythm...normal P axis, V-rate 50- 99 Ventricular trigeminy...trigeminy string>6 w/ V complexes Left atrial enlargement...P, P'>60mS, <-0.15mV V1 Ventricular hypertrophy with repolarization abnormalities
== END 2022-05-13 11:47 | disposition home or self-care (01) ==
LOC: DI.KIM 11:47
PROVIDERS: PCP Nurse Practitioner Adult Health; Visit Provider Nurse Practitioner Family
DX: R00.1 Bradycardia, unspecified (principal); R53.83 Other fatigue; R94.31 Abnormal electrocardiogram [ECG] [EKG]
CPT/HCPCS: 93010

== ENCOUNTER 2022-05-14 15:07 | Outpatient (REF) | payer MEDICARE, BC, SELFPAY | END 2022-05-14 15:08 | disposition home or self-care (01) | LOC: LBN 15:07 | PROVIDERS: PCP Nurse Practitioner Adult Health; Visit Provider Nurse Practitioner Family | DX: R53.83 Other fatigue (principal) | CPT/HCPCS: 87177 ==

== ENCOUNTER 2022-05-27 03:59 | Outpatient (CLI) | payer MEDICARE, BC, SELFPAY ==
[2022-05-27 09:02] LABS: Abs Immature Grans 0.01 10^3/uL (0.0-0.06); Absolute Basophil Count 0.03 10^3/uL (0.0-0.2); Absolute Eosinophil Count 0.14 10^3/uL (0.0-0.7); Absolute Lymphocyte Count 2.03 10^3/uL (1.2-3.4); Absolute Monocyte Count 0.58 10^3/uL (0.1-0.8); Absolute Neutrophil Count 3.84 10^3/uL (1.2-6.7); Basophils % 0.5; Eosinophils % 2.1; HCT 49.6 % (40.0-50.0); HGB 16.6 g/dL (13.5-17.5); Immature Grans % 0.2; Lymphocytes % 30.6; MCH 31.6 pg (27.0-33.0); MCHC 33.5 % (32.0-36.0); MCV 94 fL (80-95); MPV 11.7 fL (8.0-11.0); Monocytes % 8.7; Neutrophils % 57.9; Platelet Count 163 10^3/uL (130-400); RBC 5.26 10^6/uL (4.36-5.78); RDW 13.5 % (11.8-14.1); RDW-SD 46.8 fL; WBC 6.63 10^3/uL (4.4-10.8)
[2022-05-27 09:40] LABS: ALT 38 U/L (16-63); AST 28 U/L (15-37); Alkaline Phosphatase 58 U/L (46-116); Anion Gap 5.6 mmol/L (3-11); BUN 23 mg/dL (7-18); Bilirubin, Total 0.6 mg/dL (0.2-1.0); CO2 30.4 mmol/L (21.0-32.0); CREATININE 1.2 mg/dL (0.70-1.30); Calcium 9.2 mg/dL (8.5-10.1); Chloride 102 mmol/L (98-107); Estimated GFR 66.28 (mL/min/1.73m2); Glucose 101 mg/dL (74-106); Sodium 138 mmol/L (136-145); TSH (W/Ref FT4) 1.68 uIU/mL (0.36-3.74); Total Protein 7.8 g/dL (6.4-8.2)
[2022-05-27 10:21] LABS: Calculated LDL 38 mg/dL (<100); Cholesterol 129 mg/dL (<200); HDL Cholesterol 75 mg/dL (40-60); Triglyceride 82 mg/dL (<150)
== END 2022-05-27 04:00 | disposition home or self-care (01) ==
LOC: LBO 03:59
PROVIDERS: Internal Medicine Hematology & Oncology; PCP Nurse Practitioner Adult Health; Visit Provider Nurse Practitioner Family
DX: E78.01 Familial hypercholesterolemia (principal)
CPT/HCPCS: 36415; 80053; 80061; 84443; 85025

== ENCOUNTER 2022-08-04 02:38 | Outpatient (CLI) | payer MEDICARE, BC, SELFPAY ==
[2022-08-04 10:16] LABS: Calculated LDL 77 mg/dL (<100); Cholesterol 164 mg/dL (<200); HDL Cholesterol 73 mg/dL (40-60); Triglyceride 73 mg/dL (<150)
[2022-08-06 09:45] LABS: Apolipoprotein B, S 68 mg/dL
== END 2022-08-04 02:39 | disposition home or self-care (01) ==
PROVIDERS: PCP Nurse Practitioner Adult Health; Visit Provider Internal Medicine Cardiovascular Disease
DX: E78.01 Familial hypercholesterolemia (principal); I25.10 Atherosclerotic heart disease of native coronary artery without angina pectoris; R06.09 Other forms of dyspnea; R07.2 Precordial pain
CPT/HCPCS: 36415; 80061; 82172

== ENCOUNTER 2023-01-17 02:59 | Outpatient (CLI) | payer MEDICARE, BC, SELFPAY ==
[2023-01-17 10:10] LABS: Calculated LDL 79 mg/dL (<100); Cholesterol 178 mg/dL (<200); HDL Cholesterol 83 mg/dL (40-60); Triglyceride 84 mg/dL (<150)
[2023-01-19 10:08] LABS: Apolipoprotein B, S 68 mg/dL
== END 2023-01-17 03:00 | disposition home or self-care (01) ==
PROVIDERS: PCP Nurse Practitioner Adult Health; Visit Provider Internal Medicine Cardiovascular Disease
DX: E78.01 Familial hypercholesterolemia (principal); I49.3 Ventricular premature depolarization; I25.10 Atherosclerotic heart disease of native coronary artery without angina pectoris; R06.02 Shortness of breath
CPT/HCPCS: 36415; 80061; 82172

== ENCOUNTER 2023-06-16 04:54 | Outpatient (CLI) | payer MEDICARE, BC, SELFPAY ==
[2023-06-16 08:25] LABS: Calculated LDL 59 mg/dL (<100); Cholesterol 148 mg/dL (<200); HDL Cholesterol 76 mg/dL (40-60); Triglyceride 66 mg/dL (<150)
[2023-06-16 21:06] LABS: CRP, High Sensitivity 0.68 mg/L (See Note)
[2023-06-18 11:08] LABS: Lipoprotein (a) <7 nmol/L (<75)
== END 2023-06-16 04:55 | disposition home or self-care (01) ==
LOC: LBO 04:54
PROVIDERS: PCP Nurse Practitioner Adult Health; Visit Provider Internal Medicine Cardiovascular Disease
DX: E78.5 Hyperlipidemia, unspecified (principal); I10 Essential (primary) hypertension
CPT/HCPCS: 36415; 80061; 83695; 86141

== ENCOUNTER 2023-08-25 01:50 | Outpatient (CLI) | payer MEDICARE, BC, SELFPAY ==
[2023-08-25 10:51] LABS: Anion Gap 7.1 mmol/L (3-11); BUN 27 mg/dL (7-18); CO2 30.9 mmol/L (21.0-32.0); CREATININE 1.2 mg/dL (0.70-1.30); Calcium 9.8 mg/dL (8.5-10.1); Chloride 99 mmol/L (98-107); Estimated GFR 65.87 (mL/min/1.73m2); Glucose 115 mg/dL (74-106); Potassium 4.1 mmol/L (3.5-5.1); Sodium 137 mmol/L (136-145)
== END 2023-08-25 01:51 | disposition home or self-care (01) ==
LOC: LBO 01:50
PROVIDERS: PCP Nurse Practitioner Adult Health; Visit Provider Nurse Practitioner Adult Health
DX: N40.1 Benign prostatic hyperplasia with lower urinary tract symptoms (principal); Z90.79 Acquired absence of other genital organ(s); I50.20 Unspecified systolic (congestive) heart failure; Z12.5 Encounter for screening for malignant neoplasm of prostate
CPT/HCPCS: 36415; 80048; 84154

== ENCOUNTER 2023-12-27 03:56 | Outpatient (CLI) | payer MEDICARE, BC, SELFPAY ==
[2023-12-27 08:48] LABS: Hemoglobin A1C 5.7 % (<5.7)
[2023-12-27 09:05] LABS: Calculated LDL 120 mg/dL (<100); Cholesterol 215 mg/dL (<200); HDL Cholesterol 77 mg/dL (40-60); Triglyceride 92 mg/dL (<150)
== END 2023-12-27 03:57 | disposition home or self-care (01) ==
PROVIDERS: PCP Nurse Practitioner Adult Health; Visit Provider Internal Medicine
DX: R73.01 Impaired fasting glucose (principal); E78.01 Familial hypercholesterolemia
CPT/HCPCS: 36415; 80061; 83036

== ENCOUNTER 2024-03-13 03:19 | Outpatient (CLI) | payer MEDICARE, BC, SELFPAY ==
[2024-03-13 10:50] LABS: Anion Gap 6.9 mmol/L (3-11); BUN 26 mg/dL (7-18); CO2 30.1 mmol/L (21.0-32.0); CREATININE 1.2 mg/dL (0.70-1.30); Calcium 9.4 mg/dL (8.5-10.1); Calculated LDL 55 mg/dL (<100); Chloride 106 mmol/L (98-107); Cholesterol 162 mg/dL (<200); Estimated GFR 65.46 (mL/min/1.73m2); Glucose 109 mg/dL (74-106); HDL Cholesterol 70 mg/dL (40-60); Sodium 143 mmol/L (136-145); Triglyceride 186 mg/dL (<150)
== END 2024-03-13 03:20 | disposition home or self-care (01) ==
PROVIDERS: PCP Nurse Practitioner Adult Health; Visit Provider Internal Medicine
DX: I50.20 Unspecified systolic (congestive) heart failure (principal)
CPT/HCPCS: 36415; 80048; 80061